=== PATIENT | female | born 1975 | race Caucasian/White ===

== ENCOUNTER 2019-04-30 10:19 | Emergency (ER) | payer SELFPAY ==
[2019-04-30] MEDS: GABAPENTIN 100 MG CAP PO (10:54)
[2019-04-30 11:21] LABS: URINE BLOOD (Dip) POC Negative (NEGATIVE); URINE KETONES (Dip) POC Negative (NEGATIVE); URINE LEUKOCYTE EST (Dip) POC Negative (NEGATIVE); URINE NITRITE (Dip) POC Negative (NEGATIVE); URINE TOTAL PROTEIN POC Negative (NEGATIVE)
== END 2019-04-30 11:36 | disposition home or self-care (01) ==
LOC: FTE 10:19
DX: G62.9 Polyneuropathy, unspecified (principal)
CPT/HCPCS: 81003; 82962; 99283